=== PATIENT | male | born 1985 | race American Indian/Alaskan Native ===

== ENCOUNTER 2018-05-25 01:22 | Emergency (ER) | payer OTHER ==
[~2018-05-25] VITALS: Ht 188 cm; Wt 104.3 kg
[~2018-05-25 01:22] MED LIST: AZIT250 PO; CODACEE120 PO; DOXY100 PO; IBUP600 PO; NAPR500 PO; ONDA4 PO; OXYACE5T PO; PRED10 PO; PROM25 PO; RXHYDACE PO; RXOXYACE PO
== END 2018-05-25 02:08 | disposition home or self-care (01) ==
LOC: ER 01:22
DX: S51.811A Laceration without foreign body of right forearm, initial encounter (principal); S01.311A Laceration without foreign body of right ear, initial encounter; R45.1 Restlessness and agitation; F17.210 Nicotine dependence, cigarettes, uncomplicated; W34.00XA Accidental discharge from unspecified firearms or gun, initial encounter; Y93.39 Activity, other involving climbing, rappelling and jumping off
CPT/HCPCS: 12001; 12013; 73090; 99283-25

== ENCOUNTER 2018-10-08 16:58 | Emergency (ER) | payer OTHER ==
[~2018-10-08] VITALS: Ht 182.9 cm; Wt 104.3 kg
== END 2018-10-08 18:02 | disposition home or self-care (01) ==
LOC: ER 16:58
DX: S61.306A Unspecified open wound of right little finger with damage to nail, initial encounter (principal); W22.8XXA Striking against or struck by other objects, initial encounter; F17.210 Nicotine dependence, cigarettes, uncomplicated
CPT/HCPCS: 73130; 99283-25